=== PATIENT | female | born 2000 | race Caucasian/White ===

== ENCOUNTER 2021-10-08 16:00 | Observation (INO) | payer MEDICAID ==
[~2021-10-08] VITALS: Ht 165.1 cm; Wt 73.0 kg
== END 2021-10-08 19:41 | disposition home or self-care (01) ==
LOC: SPU 16:00
PROVIDERS: ADMIT Obstetrics & Gynecology; ATTEND Obstetrics & Gynecology
DX: O62.9 Abnormality of forces of labor, unspecified (principal); Z3A.38 38 weeks gestation of pregnancy
CPT/HCPCS: 81002; G0378

== ENCOUNTER 2022-04-26 19:53 | Emergency (ER) | payer MEDICAID ==
[2022-04-26 20:10] VITALS: BP_SYST 128
--- NOTE | 2022-04-26 20:10 | NUR ---
Patient to ER bed 3 to gown for evaluation. Side rails up.
--- NOTE | 2022-04-26 20:20 | NUR ---
Pt ambulatory from home with multiple complaints. Pt states she has been feeling ill lately and today she started with onset of R eye redness/discomfort, on/off BLE numbness, and sore throat. Pt appears anxious at this time; however VSS. Appears in no acute distress.
[2022-04-26] MEDS ORDERED: TETRACAINE HCL/PF 0.5% OPHTHALMIC DROPS 4 ML OP ONE (20:30)
--- NOTE | 2022-04-26 20:42 | NUR ---
MD Tesfaye at bedside examining pt.
[2022-04-26] MEDS ORDERED: BENZ1LOZ73 PO (21:43)
[2022-04-26] MEDS ORDERED: BENZOCAINE/MENTHOL 1 EACH LOZENGE MM ONE (21:45)
[2022-04-26] MEDS ORDERED: OFLO5DRO EACH EYE (22:35)
[2022-04-26 23:25] VITALS: BP_SYST 119
--- NOTE | 2022-04-26 23:25 | NUR ---
Patient given written and verbal discharge instructions and verbalizes understanding. ER MD Espinosa discussed with patient the results and treatment provided. Patient in stable condition. ID arm band removed. Rx sent to preferred pharmacy. Patient educated on pain management and to follow up with PMD. Opportunity for questions provided and answered. Medication side effect fact sheet provided.
== END 2022-04-26 23:25 | disposition home or self-care (01) ==
LOC: SED 19:53
DX: G44.209 Tension-type headache, unspecified, not intractable (principal); H57.11 Ocular pain, right eye; Z79.899 Other long term (current) drug therapy
CPT/HCPCS: 70450-TC; 76376; 99283; 99284

== ENCOUNTER 2023-09-13 21:15 | Emergency (ER) | payer MEDICAID ==
[~2023-09-13] VITALS: Ht 165.1 cm; Wt 72.6 kg
[~2023-09-13 21:15] MED LIST: BENZ1LOZ73 PO; OFLO5DRO EACH EYE
[2023-09-13 21:32] VITALS: BP_SYST 124; PULSE 93; RESP 19; TEMP 97.7; O2SAT 100
[2023-09-13] MEDS ORDERED: CEPH-548 PO (23:35)
[2023-09-13] MEDS: cefTRIAXone 1 GM in LIDOCAINE 1%, 20 ML MDV 2.1 ML IM ONE (23:40)
[2023-09-13] MEDS: KETOROLAC TROMETHAMINE 60 MG/2 ML VIAL IM ONE (23:40)
[2023-09-13 23:42] VITALS: BP_SYST 124; PULSE 93; RESP 19; TEMP 97.7; O2SAT 100
[2023-09-13 23:52] LABS: BILIRUBIN,URINE NEGATIVE (NEGATIVE); BLOOD, URINE NEGATIVE (NEGATIVE); CLARITY/URINE CLEAR (CLEAR); COLOR,URINE YELLOW (YELLOW); GLUCOSE,URINE NEGATIVE (NEGATIVE); KETONES,URINE NEGATIVE (NEGATIVE); LEUKOCYTE ESTERASE ,URINE NEGATIVE (NEGATIVE); NITRITE, URINE NEGATIVE (NEGATIVE); PH,URINE 7.5 (5.0-8.0); PROTEIN URINE NEGATIVE (NEGATIVE); UROBILINOGEN,URINE 0.2 (0.2-1.0)
== END 2023-09-13 23:41 | disposition home or self-care (01) ==
LOC: SED 21:15
DX: L03.116 Cellulitis of left lower limb (principal); Z79.899 Other long term (current) drug therapy
CPT/HCPCS: 99284; 81001; 96372; 81003; J0696; J1885; J2001